=== PATIENT | female | born 1970 | race Caucasian/White ===

== ENCOUNTER 2022-06-05 16:18 | Emergency (ER) | payer BC ==
[2022-06-05] MEDS ORDERED: Ketorolac Tromethamine 30 MG/ML VIAL ONE (16:52)
== END 2022-06-05 18:35 | disposition home or self-care (01) ==
LOC: ERS 16:18
DX: S92.511A Displaced fracture of proximal phalanx of right lesser toe(s), initial encounter for closed fracture (principal); W22.09XA Striking against other stationary object, initial encounter
CPT/HCPCS: 96372; J1885